=== PATIENT | female | born 1985 | race African-American/Black ===

== ENCOUNTER 2017-11-13 21:37 | Emergency (ER) | payer MEDICAID, OTHER ==
[~2017-11-13] VITALS: Ht 172.7 cm; Wt 61.2 kg
[2017-11-13 22:32] LABS: Albumin 3.7 g/dL (3.4-5.0); BUN/Creatinine Ratio 11.3; Potassium 3.7 mmol/L (3.5-5.1)
[2017-11-13 22:35] LABS: Bilirubin, Total 0.5 mg/dL (0.2-1.0); Total Protein 7.5 g/dL (6.4-8.2)
[2017-11-13] MEDS ORDERED: ONDANSETRON HCL 4 MG/2 ML VIAL IV ONE (22:45)
[2017-11-13] MEDS ORDERED: NALBUPHINE HCL 10 MG/1ml INJECTION IV ONE (22:45)
[2017-11-13 22:51] LABS: Basophils # (auto) 0 uL; Basophils % (auto) 0.5 % (0.0-2.0); Eosinophils # (auto) 0 uL; Eosinophils % (auto) 0.3 % (0.0-7.0); Hemoglobin 10.7 g/dL (12.2-16.2); Lymphocytes # (auto) 1.4 uL; Lymphocytes % (auto) 13.1 % (10.0-50.0); Mean Corpuscular Hemoglobin 29.1 pg (28.0-32.0); Mean Corpuscular Hgb Conc. 32.3 g/dL (32.0-36.0); Monocytes # (auto) 0.2 uL; Monocytes % (auto) 2.4 % (0.0-12.0); Neutrophils # (auto) 8.6 uL; Neutrophils % (auto) 83.7 % (37.0-80.0); Platelet Count (auto) 232 10^3/uL (140-450); Red Blood Cells 3.67 10^6/uL (4.0-5.20); Red Cell Distribution Width 15.2 % (11.8-14.3); White Blood Cell 10.3 10^3/uL (4.4-10.8)
[2017-11-14] MEDS ORDERED: NALBUPHINE HCL 10 MG/1ml INJECTION IV ONE (00:15)
[2017-11-14] MEDS ORDERED: SODIUM CHLORIDE 0.9% 1,000 ML IV ONE (00:15)
[2017-11-14 02:24] VITALS: BP 146/78
== END 2017-11-14 02:59 | disposition home or self-care (01) ==
LOC: ER 21:43
DX: K52.9 Noninfective gastroenteritis and colitis, unspecified (principal); F17.210 Nicotine dependence, cigarettes, uncomplicated
CPT/HCPCS: 36415; 74176; 80053; 84702; 85025; 96361; 96374; 96375; 96376; 99285; J2300; J2405; J7030

== ENCOUNTER 2017-12-19 01:00 | Emergency (ER) | payer MEDICAID ==
[~2017-12-19] VITALS: Ht 167.6 cm; Wt 61.2 kg
[2017-12-19 06:17] LABS: Basophils # (auto) 0 uL; Basophils % (auto) 0.1 % (0.0-2.0); Eosinophils # (auto) 0 uL; Hematocrit 33.3 % (36.0-46.0); Hemoglobin 10.9 g/dL (12.2-16.2); Lymphocytes # (auto) 0.5 uL; Lymphocytes % (auto) 4.1 % (10.0-50.0); Mean Corpuscular Hemoglobin 29.1 pg (28.0-32.0); Mean Corpuscular Hgb Conc. 32.8 g/dL (32.0-36.0); Mean Corpuscular Volume 88.6 fL (80.0-100.0); Monocytes # (auto) 0.3 uL; Monocytes % (auto) 2.2 % (0.0-12.0); Neutrophils # (auto) 11.6 uL; Neutrophils % (auto) 93.6 % (37.0-80.0); Platelet Count (auto) 227 10^3/uL (140-450); Red Blood Cells 3.76 10^6/uL (4.0-5.20); Red Cell Distribution Width 14.7 % (11.8-14.3); White Blood Cell 12.4 10^3/uL (4.4-10.8)
[2017-12-19 06:35] LABS: Albumin 3.6 g/dL (3.4-5.0); BUN/Creatinine Ratio 11.3; Bilirubin, Total 0.8 mg/dL (0.2-1.0); Calcium 8.7 mg/dL (8.5-10.1); Potassium 3.7 mmol/L (3.5-5.1); Total Protein 7.8 g/dL (6.4-8.2)
[2017-12-19] MEDS ORDERED: PANTOPRAZOLE 40 MG TAB PO ONE (07:15)
[2017-12-19] MEDS ORDERED: ONDANSETRON ODT 4 MG TAB PO ONE (07:15)
[2017-12-19 07:29] VITALS: BP 119/38
== END 2017-12-19 07:26 | disposition home or self-care (01) ==
LOC: ER 01:00 → EDBD 01:00 → ER 03:44
DX: K29.70 Gastritis, unspecified, without bleeding (principal); F12.10 Cannabis abuse, uncomplicated; F17.210 Nicotine dependence, cigarettes, uncomplicated
CPT/HCPCS: 36415; 80053; 83690; 84702; 85025; 99284; Q0162